=== PATIENT | female | born 1965 | race Hispanic/Latino ===

== ENCOUNTER 2018-02-17 14:05 | Outpatient (CLI) | payer BC | END 2018-02-17 14:06 | disposition home or self-care (01) | LOC: BICMAMMO 14:05 | PROVIDERS: ATTEND Emergency Medicine | DX: Z08 Encounter for follow-up examination after completed treatment for malignant neoplasm (principal); N64.89 Other specified disorders of breast; Z85.3 Personal history of malignant neoplasm of breast; Z98.890 Other specified postprocedural states | CPT/HCPCS: 77066; G0279 ==

== ENCOUNTER 2019-01-06 10:25 | Day surgery (SDC) | payer BC ==
[2019-01-05 15:17] VITALS: BMI 41.6
[2019-01-06] MEDS ORDERED: Heparin 5,000 UNITS/ML VIAL ONE (10:53)
[2019-01-06] MEDS ORDERED: Fentanyl 100 MCG/2 ML VIAL ONE ×3 (11:49→14:48)
[2019-01-06] MEDS ORDERED: Bacitracin Zinc Ointment 30 gm TUBE ONE (11:51)
[2019-01-06] MEDS ORDERED: Bupivacaine/Epinephrine 0.25% 30 ML VIAL ONE (11:51)
[2019-01-06] MEDS ORDERED: Gentamicin 80 MG/2 ML VIAL ONE (12:22)
[2019-01-06] MEDS ORDERED: Sodium Chloride 0.9% 20 ML ONE (12:22)
[2019-01-06] MEDS ORDERED: HYDROcodone/Acetaminophen 5/325 mg Tablet ONE (15:38)
[2019-01-06] MEDS ORDERED: Ondansetron PF 4 MG/2 ML Vial ONE (16:46)
[2019-01-06] MEDS ORDERED: diphenhydrAMINE 50 MG/ML VIAL ONE (16:46)
[2019-01-06] MEDS ORDERED: ePHEDrine 50 MG/ML VIAL ONE (16:46)
[2019-01-06] MEDS ORDERED: Lidocaine 1% PF 5 ML VIAL ONE (16:46)
[2019-01-06] MEDS ORDERED: Dexamethasone 20 MG/5 ML VIAL ONE (16:46)
[2019-01-06] MEDS ORDERED: PHENYLEPHRINE-NS 100 MCG/ML 10 ML SYRINGE ONE (16:46)
[2019-01-06] MEDS ORDERED: PROPOFOL 200 MG/20 ML VIAL ONE (16:46)
--- NOTE | 2019-01-09 10:48 | OP ---
DATE OF PROCEDURE: 01/06/2019 PREOPERATIVE DIAGNOSES: 1. Status post left breast cancer. 2. Breast asymmetry. 3. Status post right breast reduction for symmetry. 4. Postoperative infected hematoma. INDICATIONS FOR PROCEDURE: The patient is a very pleasant female, who had left breast cancer. This left her with lumpectomy and radiation. This left her very asymmetric. Several weeks ago, we elected to do a right breast reduction for symmetry. We did a right breast reduction for symmetry. Several days postoperative while on Lovenox shots, the patient developed a hematoma. Subsequently, this got infected. After multiple attempts of drainage with antibiotics, we decided to take her back to the operating room for formal debridement. DESCRIPTION OF PROCEDURE: Following the induction of adequate anesthesia, the patient was prepped and draped in usual sterile fashion in a supine position. A modified Kendall pattern breast reduction and scars were incised to save the lateral aspect of the circumareolar. This allowed for adequate elevation of the flaps. The narrow tunnels that had been packed were excised en bloc and sent for tissue culture and histologic analysis. There was one medial as well as one lateral. All the remaining tissue was noted to be soft, pliable, and healthy. The field was copiously irrigated with dilute antibiotic solution and inspected for meticulous hemostasis prior to closure of the incisions with 3-0 Monocryl suture and 3-0 Prolene suture. Drains were placed medially and laterally prior to closure. The patient tolerated the procedure well. Job ID: [id number]
--- NOTE | 2019-01-09 22:33 | EKG ---
Test Reason : PREOP Blood Pressure : / mmHG Vent. Rate : 052 BPM Atrial Rate : 052 BPM P-R Int : 200 ms QRS Dur : 096 ms QT Int : 412 ms P-R-T Axes : 013 -25 009 degrees QTc Int : 383 ms Sinus bradycardia Otherwise normal ECG No previous ECGs available Confirmed by Alejandro CRISTINA ([id number]) on 01/09/2019 10:33:16 PM Referred By: ROMI Confirmed By:Alejandro CRISTINA
--- NOTE | 2019-01-10 07:43 | PQF ---
[facility] POST DISCHARGE CLINICAL DOCUMENTATION IMPROVEMENT CLARIFICATION FORM l Todays Date: 01/10/19 l Patients Name ITA [id number] l l Admit Date 01/06/19 l Disch Date 01/06/19 Scientific Associate Name Molina Turcios Email: [email or web address]: [phone] To be completed by Scientific Associate: Present Clinical Indicators - Signs / Symptoms Results and Location in Medical Record [ ] Documentation of: [ ] [ ] Documentation of: [ ] [ ] Documentation of: [ ] [ ] Documentation of: [ ] [ ] Risks [ ] [ ] [ ] Treatment [ ] Postoperative infected hematoma of R breast Query for DEPTH and AREA (sq cm ) of debridement on R breast [ ] skin and subQ debrided from wound. 60cm2 [ ] To be completed by Physician: JASEN STEELE The documentation in this patients record requires clarification to ensure coding compliance and accuracy. Check the appropriate box and include in your discharge summary. [ ] [ ] [ ] [ ] Please check this box if this does not apply to this patient [ ] Unable to determine [ ] Other diagnosis: Review the following information and exercise your independent professional judgment in responding to the clarification. Based upon the clinical findings, risk factors, and treatment, please clarify if you are treating one of the above probable or suspected diagnoses. Physician Signature: Date Time MTDD
[2019-01-11 10:16] LABS: Fungus Stain Final report (.)
[2019-01-11 10:16] LABS: Fungus Stain Final report (.)
== END 2019-01-06 16:25 | disposition home or self-care (01) ==
LOC: SDC 10:25
PROVIDERS: ATTEND Plastic Surgery
PROC: 0HBT0ZZ Excision of Right Breast, Open Approach (ICD-10-PCS; principal; 2019-01-06)
DX: M96.841 Postprocedural hematoma of a musculoskeletal structure following other procedure (principal); T81.49XA Infection following a procedure, other surgical site, initial encounter; B95.7 Other staphylococcus as the cause of diseases classified elsewhere; N61.0 Mastitis without abscess; N60.11 Diffuse cystic mastopathy of right breast; N64.1 Fat necrosis of breast; Z79.811 Long term (current) use of aromatase inhibitors; Z79.899 Other long term (current) drug therapy; Z88.5 Allergy status to narcotic agent; Z90.13 Acquired absence of bilateral breasts and nipples; Z98.890 Other specified postprocedural states; Z85.3 Personal history of malignant neoplasm of breast; M96.842 Postprocedural seroma of a musculoskeletal structure following a musculoskeletal system procedure
CPT/HCPCS: 87070; 87077; 87102; 87116; 87186; 87205; 87206; 88305; 93005; 93010; J0131; J0690; J1100; J1200; J1580; J1644; J2001; J2405; J2704; J3010; J3370; J3490